=== PATIENT | male | born 1940 | race Caucasian/White ===

== ENCOUNTER → 2016-03-21 | Outpatient (CLI) | payer MEDICARE ==
[~2016-03-21] MED LIST: ALLOPURINOL100 MG PO; ASPIRIN ADULT L81 M1 PO; ASPIRIN325 MG PO; ATIVAN1 MG PO; ATORVASTATIN CA40 M1 PO; AVODART0.5 MG PO; BENADRYL50 MG PO; BYETTA10 MCG/0.1 SC; CARVEDILOL6.25 MG PO; CENTRUM SILVER1 EAC3 PO; ELIQUIS5 M1 PO; FINASTERIDE5 M1 PO; Lopressor25 MG PO; MEDROL DOSEPAK4 MG PO; PACERONE400 MG PO; SIMVASTATIN40 MG PO
== END | disposition home or self-care (01) ==
LOC: LAB 12:06
DX: H47.011 Ischemic optic neuropathy, right eye (principal)

== ENCOUNTER 2016-09-06 12:09 | Emergency (ER) | payer MEDICARE ==
[~2016-09-06] VITALS: Ht 177.8 cm; Wt 90.7 kg
== END 2016-09-06 14:18 | disposition home or self-care (01) ==
LOC: ED 12:09
DX: S80.12XA Contusion of left lower leg, initial encounter (principal); I10 Essential (primary) hypertension; M10.9 Gout, unspecified; E78.00 Pure hypercholesterolemia, unspecified; E11.9 Type 2 diabetes mellitus without complications; I48.91 Unspecified atrial fibrillation; E03.9 Hypothyroidism, unspecified; Z79.899 Other long term (current) drug therapy; Z79.82 Long term (current) use of aspirin; W06.XXXA Fall from bed, initial encounter; Y93.89 Activity, other specified; Y92.89 Other specified places as the place of occurrence of the external cause; Y99.8 Other external cause status

== ENCOUNTER 2016-10-25 13:07 | Inpatient (IN) | payer MEDICARE ==
[~2016-10-25] VITALS: Ht 177.8 cm; Wt 101.7 kg
[2016-10-25 13:17] VITALS: BP 178/65
[2016-10-25 13:30] LABS: HEMATOCRIT 39.9 % (42.0-52.0); MEAN CORPUSCULAR HGB 33.2 pg (27.0-31.0); MEAN CORPUSCULAR HGB CONC 32.6 g/dl (33.0-37.0); MEAN PLATELET VOLUME 10.9 fl (9.6-12.3); PLATELET COUNT AUTOMATED 199 10*3/uL (130-400); RED BLOOD COUNT 3.91 10*6/uL (4.50-5.90); RED CELL DISTRI WIDTH 15.6 % (0-14.5); WHITE BLOOD COUNT 14.6 10*3/uL (4.8-10.8)
[2016-10-25 13:42] LABS: INTERNATIONAL NORM RATIO 1.2 (2.0-3.5)
[2016-10-25 13:46] LABS: ALBUMIN 3.5 gm/dl (3.1-4.5); ALKALINE PHOSPHATASE 76 U/L (45-117); BILIRUBIN, TOTAL 0.4 mg/dl (0.2-1.0); BUN 20 mg/dl (7-24); CARBON DIOXIDE 27 mmol/L (21-32); CHLORIDE 106 mmol/L (98-107); EST GLOM FILT AFRICAN AMERICAN > 60 ml/min; GLUCOSE 87 mg/dL (65-99); POTASSIUM 4.4 mmol/L (3.5-5.1); SGOT/AST 37 IU/L (3-35); SGPT/ALT 41 U/L (12-78); SODIUM 140 mmol/L (136-145); TOTAL PROTEIN 6.7 gm/dL (6.4-8.2)
[2016-10-25 13:47] LABS: TROPONIN I 0.031 ng/ml (<0.045)
[2016-10-25 13:48] LABS: BASOPHIL # 0.6 10*3/uL (0-0.1); BASOPHILS 4 % (0-1); EOSINOPHIL # 0.3 10*3/uL (0-0.4); EOSINOPHILS 2 % (1-4); LYMPHOCYTE # 1.8 10*3/uL (1.3-4.4); METAMYELOCYTES 1 % (0-0); MONOCYTE # 0.7 10*3/uL (0.1-1.0); MYELOCYTES 1 % (0-0); NEUTROPHILS 75 % (47-73); TOTAL CELLS COUNTED 100 #CELLS
[2016-10-25 13:49] LABS: PLATELET SUFFICIENCY NORMAL (NORMAL)
[2016-10-25 14:08] VITALS: BP 159/77
[2016-10-25 14:31] VITALS: BP 145/73
[2016-10-25 15:15] VITALS: BP 130/82
[2016-10-25 16:00] VITALS: BP 130/82
[2016-10-25] MEDS ORDERED: AMIODARONE HCL200 MG PO (16:20)
[2016-10-25] MEDS ORDERED: JANUVIA50 MG PO (16:24)
[2016-10-25] MEDS ORDERED: ZOLOFT50 MG PO (16:25)
[2016-10-25] MEDS ORDERED: [UNRECOGNIZED DRUG - OTHER] T (16:26)
[2016-10-25] MEDS ORDERED: TRETINOIN20 G2 T (16:28)
[2016-10-25] MEDS ORDERED: ZESTRIL,PRINIVIL5 MG PO (16:29)
[2016-10-25 20:00] VITALS: BP 136/58
[2016-10-26] VITALS: BP 153/65; BP 159/58
[2016-10-26 05:50] LABS: HEMOGLOBIN 13.5 g/dl (14.0-18.0); MEAN CELL VOLUME 103.5 fl (80.0-94.0); MEAN CORPUSCULAR HGB 34.1 pg (27.0-31.0); MEAN CORPUSCULAR HGB CONC 32.9 g/dl (33.0-37.0); MEAN PLATELET VOLUME 11.1 fl (9.6-12.3); PLATELET COUNT AUTOMATED 197 10*3/uL (130-400); RED BLOOD COUNT 3.96 10*6/uL (4.50-5.90); RED CELL DISTRI WIDTH 15.8 % (0-14.5); WHITE BLOOD COUNT 14.3 10*3/uL (4.8-10.8)
[2016-10-26 06:03] LABS: HEMOGLOBIN A1c 5.8 % (4.8-5.6)
[2016-10-26 06:22] LABS: ALBUMIN 3.2 gm/dl (3.1-4.5); ALKALINE PHOSPHATASE 73 U/L (45-117); BILIRUBIN, TOTAL 0.4 mg/dl (0.2-1.0); BUN 16 mg/dl (7-24); CARBON DIOXIDE 29 mmol/L (21-32); CHLORIDE 107 mmol/L (98-107); CHOLESTEROL 119 mg/dL (<200); EST GLOM FILT AFRICAN AMERICAN > 60 ml/min; FREE T4 1.01 ng/dl (0.76-1.46); GLUCOSE 81 mg/dL (65-99); HDL CHOLESTEROL 48 mg/dl (40-60); LDL CHOLESTEROL 48 mg/dL (9-159); MAGNESIUM 1.8 mg/dL (1.5-2.1); PHOSPHOROUS 3.2 mg/dL (2.5-4.9); POTASSIUM 4.4 mmol/L (3.5-5.1); SGOT/AST 33 IU/L (3-35); SGPT/ALT 36 U/L (12-78); SODIUM 141 mmol/L (136-145); TRIGLYCERIDES 115 mg/dl (<150); VLDL CHOLESTEROL 23 mg/dL (6-40)
[2016-10-26 06:27] LABS: BASOPHIL # 0.3 10*3/uL (0-0.1); BASOPHILS 2 % (0-1); EOSINOPHIL # 0.3 10*3/uL (0-0.4); EOSINOPHILS 2 % (1-4); LYMPHOCYTE # 2.6 10*3/uL (1.3-4.4); METAMYELOCYTES 6 % (0-0); MONOCYTE # 0.9 10*3/uL (0.1-1.0); MYELOCYTES 1 % (0-0); NEUTROPHIL # 9.3 10*3/uL (2.3-7.9); NEUTROPHILS 65 % (47-73); PLATELET SUFFICIENCY NORMAL (NORMAL); TOTAL CELLS COUNTED 100 #CELLS
[2016-10-26 06:28] LABS: TOTAL PROTEIN 6.3 gm/dL (6.4-8.2)
[2016-10-26 06:32] LABS: FOLIC ACID 20.53 ng/mL (>5.38); VITAMIN D, 25-HYDROXY 25.9 ng/mL (30-100)
[2016-10-26 08:00] VITALS: BP 156/70
[2016-10-26 11:04] LABS: BILIRUBIN NEGATIVE (NEGATIVE); BLOOD NEGATIVE (NEGATIVE); CLARITY CLEAR (CLEAR); COLOR YELLOW (YELLOW); GLUCOSE NEGATIVE (NEGATIVE); KETONE NEGATIVE (NEGATIVE); LEUKO ESTERASE TRACE (NEGATIVE); NITRITE NEGATIVE (NEGATIVE); PH 5.5 (5.0-9.0); PROTEIN NEGATIVE (NEGATIVE); SPECIFIC GRAVITY <= 1.005 (1.005-1.030); UROBILINOGEN 0.2 E.U./dl (0.2-1.0)
[2016-10-26] MEDS ORDERED: SYNTHROID,LEV112 MCG PO (11:05)
[2016-10-26 11:10] LABS: WBC 0-2 wbc/hpf (0-5)
[2016-10-26 12:00] VITALS: BP 140/89
== END 2016-10-26 13:50 | disposition home or self-care (01) | DRG 281 ==
LOC: ED 13:07 → 5E 14:22 → EDHOLD 14:22 → 5E 14:47
PROVIDERS: Emergency Medicine; Family Medicine; Internal Medicine Hospice and Palliative Medicine
DX: I21.3 ST elevation (STEMI) myocardial infarction of unspecified site (principal); C92.10 Chronic myeloid leukemia, BCR/ABL-positive, not having achieved remission; D68.59 Other primary thrombophilia; R09.1 Pleurisy; E11.65 Type 2 diabetes mellitus with hyperglycemia; I48.0 Paroxysmal atrial fibrillation; K21.9 Gastro-esophageal reflux disease without esophagitis; R07.89 Other chest pain; I10 Essential (primary) hypertension; E78.00 Pure hypercholesterolemia, unspecified; I25.119 Atherosclerotic heart disease of native coronary artery with unspecified angina pectoris; F41.1 Generalized anxiety disorder; D53.9 Nutritional anemia, unspecified; N40.0 Benign prostatic hyperplasia without lower urinary tract symptoms; E02 Subclinical iodine-deficiency hypothyroidism; E78.5 Hyperlipidemia, unspecified; Z96.651 Presence of right artificial knee joint; F32.9 Major depressive disorder, single episode, unspecified; I44.0 Atrioventricular block, first degree; H54.41 Blindness, right eye, normal vision left eye; M10.9 Gout, unspecified; R00.1 Bradycardia, unspecified; Z98.61 Coronary angioplasty status; Z79.899 Other long term (current) drug therapy; Z79.82 Long term (current) use of aspirin; Z80.1 Family history of malignant neoplasm of trachea, bronchus and lung; Z82.49 Family history of ischemic heart disease and other diseases of the circulatory system

== ENCOUNTER 2016-12-09 08:30 | Emergency (ER) | payer MEDICARE ==
[~2016-12-09] VITALS: Ht 177.8 cm; Wt 90.7 kg
[~2016-12-09 08:30] MED LIST changes: +AMIODARONE HCL200 MG PO; +JANUVIA50 MG PO; +SYNTHROID,LEV112 MCG PO; +TRETINOIN20 G2 T; +ZESTRIL,PRINIVIL5 MG PO; +ZOLOFT50 MG PO; +[UNRECOGNIZED DRUG - OTHER] T
== END 2016-12-09 10:06 | disposition home or self-care (01) ==
LOC: ED 08:30
DX: S00.411A Abrasion of right ear, initial encounter (principal); E03.9 Hypothyroidism, unspecified; I48.91 Unspecified atrial fibrillation; I25.10 Atherosclerotic heart disease of native coronary artery without angina pectoris; I10 Essential (primary) hypertension; M10.9 Gout, unspecified; E78.00 Pure hypercholesterolemia, unspecified; E11.65 Type 2 diabetes mellitus with hyperglycemia; Z96.651 Presence of right artificial knee joint; Z95.5 Presence of coronary angioplasty implant and graft; Z79.899 Other long term (current) drug therapy; Z79.82 Long term (current) use of aspirin; X58.XXXA Exposure to other specified factors, initial encounter; Y93.89 Activity, other specified; Y92.89 Other specified places as the place of occurrence of the external cause; Y99.9 Unspecified external cause status

== ENCOUNTER 2017-01-30 15:35 | Emergency (ER) | payer MEDICARE ==
[~2017-01-30] VITALS: Wt 90.7 kg
[2017-01-30 16:57] LABS: HEMATOCRIT 44.3 % (42.0-52.0); HEMOGLOBIN 14.3 g/dl (14.0-18.0); MEAN CELL VOLUME 102.8 fl (80.0-94.0); MEAN CORPUSCULAR HGB 33.2 pg (27.0-31.0); MEAN CORPUSCULAR HGB CONC 32.3 g/dl (33.0-37.0); MEAN PLATELET VOLUME 11.8 fl (9.6-12.3); PLATELET COUNT AUTOMATED 234 10*3/uL (130-400); RED BLOOD COUNT 4.31 10*6/uL (4.50-5.90); RED CELL DISTRI WIDTH 16.7 % (0-14.5); WHITE BLOOD COUNT 13.8 10*3/uL (4.8-10.8)
[2017-01-30 17:11] LABS: ALBUMIN 3.6 gm/dl (3.1-4.5); ALKALINE PHOSPHATASE 72 U/L (45-117); BUN 21 mg/dl (7-24); CHLORIDE 106 mmol/L (98-107); LIPASE 116 U/L (73-393); POTASSIUM 4.8 mmol/L (3.5-5.1); SGOT/AST 38 IU/L (3-35); SGPT/ALT 41 U/L (12-78); SODIUM 141 mmol/L (136-145); TOTAL PROTEIN 7.1 gm/dL (6.4-8.2)
[2017-01-30 17:43] LABS: BASOPHILS 2 % (0-1); TOTAL CELLS COUNTED 100 #CELLS
[2017-01-30 17:44] LABS: PLATELET SUFFICIENCY NORMAL (NORMAL)
[2017-01-30 18:05] LABS: BILIRUBIN NEGATIVE (NEGATIVE); BLOOD NEGATIVE (NEGATIVE); CLARITY CLEAR (CLEAR); COLOR YELLOW (YELLOW); GLUCOSE NEGATIVE (NEGATIVE); KETONE NEGATIVE (NEGATIVE); LEUKO ESTERASE NEGATIVE (NEGATIVE); NITRITE NEGATIVE (NEGATIVE); UROBILINOGEN 0.2 E.U./dl (0.2-1.0)
[2017-01-30 18:17] LABS: EPITHELIAL CELLS 0-2; RBC 0-2 rbc/hpf (0-2); WBC 0-2 wbc/hpf (0-5)
[2017-01-30] MEDS ORDERED: MIRALAX POWDER17 G1 PO (18:49)
== END 2017-01-30 18:37 | disposition home or self-care (01) ==
LOC: ED 15:35
PROVIDERS: Nurse Practitioner Family
DX: K59.00 Constipation, unspecified (principal); R03.0 Elevated blood-pressure reading, without diagnosis of hypertension; I48.91 Unspecified atrial fibrillation; I25.10 Atherosclerotic heart disease of native coronary artery without angina pectoris; F32.9 Major depressive disorder, single episode, unspecified; I10 Essential (primary) hypertension; E78.00 Pure hypercholesterolemia, unspecified; E03.9 Hypothyroidism, unspecified; E11.65 Type 2 diabetes mellitus with hyperglycemia; Z79.82 Long term (current) use of aspirin; Z79.899 Other long term (current) drug therapy

== ENCOUNTER 2017-03-12 01:18 | Emergency (ER) | payer MEDICARE ==
[~2017-03-12] VITALS: Wt 90.7 kg
[~2017-03-12 01:18] MED LIST changes: +MIRALAX POWDER17 G1 PO
[2017-03-12 01:44] LABS: HEMATOCRIT 40.8 % (42.0-52.0); HEMOGLOBIN 13.3 g/dl (14.0-18.0); MEAN CELL VOLUME 102.5 fl (80.0-94.0); MEAN CORPUSCULAR HGB 33.4 pg (27.0-31.0); MEAN CORPUSCULAR HGB CONC 32.6 g/dl (33.0-37.0); PLATELET COUNT AUTOMATED 202 10*3/uL (130-400); RED BLOOD COUNT 3.98 10*6/uL (4.50-5.90); RED CELL DISTRI WIDTH 16.3 % (0-14.5); WHITE BLOOD COUNT 18.2 10*3/uL (4.8-10.8)
[2017-03-12 02:02] LABS: ALBUMIN 3.5 gm/dl (3.1-4.5); ALKALINE PHOSPHATASE 94 U/L (45-117); BASOPHILS 2 % (0-1); BUN 21 mg/dl (7-24); CHLORIDE 104 mmol/L (98-107); CREATININE 1.13 mg/dL (0.70-1.30); PLATELET SUFFICIENCY NORMAL (NORMAL); POTASSIUM 4.3 mmol/L (3.5-5.1); SGOT/AST 30 IU/L (3-35); SGPT/ALT 32 U/L (12-78); SODIUM 142 mmol/L (136-145); TOTAL CELLS COUNTED 100 #CELLS
[2017-03-12] MEDS ORDERED: NAPROSYN500 MG PO (02:44)
== END 2017-03-12 02:50 | disposition home or self-care (01) ==
LOC: ED 01:18
PROVIDERS: Student in an Organized Health Care Education/Training Program
DX: R07.81 Pleurodynia (principal); M54.5 Low back pain; I25.10 Atherosclerotic heart disease of native coronary artery without angina pectoris; I48.91 Unspecified atrial fibrillation; I10 Essential (primary) hypertension; E78.00 Pure hypercholesterolemia, unspecified; E03.9 Hypothyroidism, unspecified; E11.9 Type 2 diabetes mellitus without complications; Z79.82 Long term (current) use of aspirin; Z79.899 Other long term (current) drug therapy

== ENCOUNTER 2017-03-18 22:58 | Inpatient (IN) | payer MEDICARE ==
[~2017-03-18] VITALS: Ht 177.8 cm; Wt 88.6 kg
--- NOTE | ~2017-03-18 | CON ---
[place], [place] REPORT OF CONSULTATION NAME: ODILON DUFFY UNIT #: [id number] ROOM: [facility] DOCTOR: SAHIL SANDY MD BIRTHDATE: [birth year] DOS: 03/19/2017 CHIEF COMPLAINT: Falling spells, chest discomfort, elevated troponin. HISTORY OF PRESENT ILLNESS: The patient is a 76-year-old man who does have a history of atherosclerotic heart disease. Old records are not yet available, but the patient states that he has had catheterization, angioplasty and stenting in the distant past. He states he is typically followed by a printer maintainer, Dr. Chris, at the [facility] in [place], [place]. The patient also has paroxysmal atrial fibrillation for which he is on amiodarone for rhythm control and Eliquis for stroke prophylaxis. Please note that much of the history is obtained from old records that are available since the patient is a very poor historian. He presented to the hospital on 03/18/2017 for evaluation of confusion and falling. He states that he was visiting his son in [place] for the Skip holidays a week or so ago and fell in his driveway. He believes he just slipped and fell. He did state that he hit his back hard. He subsequently had spells where he has been weak in his legs and has fallen. He also seems quite confused. It is not clear how much of this is his baseline since old records indicate that he was a poor historian at that time as well. He subsequently has had at least 2 or 3 further falls, but he is very unclear on this. During one fall in his home, he believes that he ran into a door frame and then fell. He does admit that he has hit his head during at least one fall. The old records indicate that the daycare manager where he lives was present in the Emergency Room. They stated that he had fallen more than once on the day of admission and also that the patient's medications were scattered all over the place at his home. In addition to the above, the patient has had chest discomfort. He describes a nondescript heaviness in his left anterior chest. He cannot tell me what if anything makes it better or worse. PAST MEDICAL HISTORY: Includes; 1. Atherosclerotic heart disease, status post catheterization, angioplasty and stenting in the distant past. Detailed records not available. 2. Paroxysmal atrial fibrillation. The patient is currently in sinus rhythm and is taking amiodarone for rhythm control. He is on Eliquis for stroke prophylaxis. 3. Benign prostatic hyperplasia. 4. History of chronic myelocytic leukemia, status post chemotherapy with Gleevec. 5. History of essential hypertension. 6. Gout. 7. Hypercholesterolemia. 8. Hypothyroidism. The patient was placed on thyroid replacement and his indices now indicate hyperthyroidism. This is at least partly driven by his amiodarone therapy. 9. History of anemia. [place], [place] REPORT OF CONSULTATION NAME: ODILON DUFFY UNIT #: [id number] ROOM: [facility] DOCTOR: SAHIL SANDY MD BIRTHDATE: [birth year] 10. Type 2 diabetes mellitus, on insulin. 11. History of depression. 12. History of right total knee replacement. MEDICATIONS PRIOR TO ADMISSION: 1. Aspirin 81 mg daily. 2. Atorvastatin 20 mg every evening. 3. Cyclobenzaprine 5 mg b.i.d. as needed for muscle spasms. 4. Levothyroxine 25 mcg daily. 5. Lisinopril 5 mg 2 tablets b.i.d. 6. Multivitamin (Centrum Silver) 1 p.o. each day. 7. Naproxen 500 mg b.i.d. 8. Sertraline 50 mg daily. 9. Apixaban 5 mg b.i.d. 10. Carvedilol 6.25 mg b.i.d. 11. Finasteride 5 mg per day. 12. Amiodarone 200 mg per day. 13. Sitagliptin 50 mg daily. 14. Tretinoin cream applied to the face daily. 15. Polyethylene glycol 1 packet daily. ALLERGIES: The patient has no known drug allergies. FAMILY HISTORY: The patient's father of lung cancer at age 72. His mother of heart disease in her 70s. A brother of a heart attack in his 50s and another brother had heart disease requiring open heart surgery. REVIEW OF SYSTEMS: The patient has a hard time answering questions and often seems very tangential. He denies headache, lightheadedness or syncope. He does admit that he is unsteady. He denies syncope. He denies fevers, chills, sweats or recent weight change. He has had some heaviness in his chest, but he cannot tell what makes it better or worse. He denies nausea or vomiting. He denies cough or hemoptysis. He denies any hematemesis. He denies any skin rashes. He denies bleeding from his nose, urine or stool. He denies constipation or diarrhea. He denies any peripheral edema. He denies dysuria or enuresis. The remainder of the review of systems is negative except as noted above. SOCIAL HISTORY: The patient lives alone. He does not smoke or consume alcohol. He states that all of his family is in [place] and it does not sound like he has much family support to help him locally. PHYSICAL EXAMINATION: GENERAL: The patient is a well-nourished white male who is awake and alert. He seems to be oriented x at least 2, but confuses easily. VITAL SIGNS: Pulse is 56 and regular, blood pressure is 161/68. He is afebrile. He weighs 88.6 kg and has a body mass index of 28. HEENT: Normocephalic, atraumatic. Extraocular muscles are intact. Sclerae are clear. Pupils are equal, round and react to light. The oral mucosa is moist. Tongue is midline. NECK: Supple. He has no jugular distention. Carotids are full. I heard no [place], [place] REPORT OF CONSULTATION NAME: ODILON DUFFY UNIT #: [id number] ROOM: [facility] DOCTOR: SAHIL SANDY MD BIRTHDATE: [birth year] bru[place]. He had no neck or supraclavicular masses and no thyromegaly. LUNGS: Respirations are unlabored. His chest is clear to auscultation and percussion. He has no presacral edema or chest wall tenderness. CARDIOVASCULAR: His heart has a regular rhythm. He has a fourth heart sound, but no third heart sound. The PMI is not displaced. He has no precordial heave, lift or thrill. ABDOMEN: Soft and normally active without masses, organomegaly or bruits. EXTREMITIES: Showed no edema. Peripheral pulses are palpable in the feet. I reviewed his electrocardiogram and it showed no acute ST or T-wave changes. His chest x-ray showed no acute infiltrates. A CT scan of the head showed normal age-related findings, but no hemorrhage or tumor. Hemoglobin is 12.6 with hematocrit 37.7. There are 19,000 white cells present, platelet count is 206,000. Sodium is 141, potassium 3.7, BUN 16, creatinine 0.93. Estimated GFR is greater than 60. Troponin levels have been elevated since admission. His initial troponin was 0.112; it went as high as 0.217 and has now backed down to 0.166. Urine shows no signs of infection. IMPRESSIONS: 1. Atypical chest pain in a patient with history of coronary artery disease. Details of his history are not yet available. 2. Elevated troponin levels, possibly due to an acute myocardial infarction. 3. Diabetes mellitus. 4. Essential hypertension. 5. Thyroid disease, likely exacerbated by amiodarone therapy. 6. Paroxysmal atrial fibrillation. The patient is currently in sinus rhythm on amiodarone with apixaban as an anti-stroke agent. 7. History of partial blindness. 8. History of coronary artery disease, status post reported stent in the distant past. 9. Chronic myelocytic leukemia. PLAN: The patient is currently being managed with amiodarone, beta thiago and apixaban for his atrial fibrillation and stroke prophylaxis. He is also on atorvastatin and aspirin. He has no acute EKG changes, but his troponin levels are somewhat concerning for a myocardial injury. We will proceed with a pharmacologic stress test today to help better predict his cardiac prognosis and to evaluate left ventricular systolic function. Unless he has very high risk findings, I think we will try to emphasize a conservative approach to his care. His confusion is a concern and will require further evaluation. I do not believe that we can fully explain this based on cardiac problems. We will continue to follow him with his other physicians and make further recommendations after his stress test is available. I thank the hospitalist physicians for asking our advice regarding his care. [place], [place] REPORT OF CONSULTATION NAME: ODILON DUFFY Jamaal UNIT #: [id number] ROOM: [facility] DOCTOR: SAHIL SANDY MD BIRTHDATE: [birth year] SAHIL SANDY MD CM:CONSTR:REPORT OF CONSULTATION 1416 03/20/17 0130 interface
[2017-03-18 22:58] VITALS: BP 131/58
[~2017-03-18 22:58] MED LIST changes: -ATORVASTATIN CA40 M1 PO; +LIPITOR20 MG PO; +NAPROSYN500 MG PO
[2017-03-18 23:47] LABS: HEMATOCRIT 37.7 % (42.0-52.0); HEMOGLOBIN 12.6 g/dl (14.0-18.0); MEAN CELL VOLUME 100.8 fl (80.0-94.0); MEAN CORPUSCULAR HGB 33.7 pg (27.0-31.0); MEAN CORPUSCULAR HGB CONC 33.4 g/dl (33.0-37.0); MEAN PLATELET VOLUME 11.3 fl (9.6-12.3); PLATELET COUNT AUTOMATED 212 10*3/uL (130-400); RED BLOOD COUNT 3.74 10*6/uL (4.50-5.90); RED CELL DISTRI WIDTH 15.5 % (0-14.5); WHITE BLOOD COUNT 23.7 10*3/uL (4.8-10.8)
[2017-03-19 00:09] LABS: ALBUMIN 3.3 gm/dl (3.1-4.5); ALKALINE PHOSPHATASE 107 U/L (45-117); BUN 22 mg/dl (7-24); CHLORIDE 103 mmol/L (98-107); CREATININE 1.12 mg/dL (0.70-1.30); SGOT/AST 35 IU/L (3-35); SGPT/ALT 33 U/L (12-78); SODIUM 137 mmol/L (136-145); TOTAL PROTEIN 6.5 gm/dL (6.4-8.2)
[2017-03-19 00:11] LABS: ACT PARTIAL THROMBO TIME 30.5 SECONDS (19.5-32.1); INTERNATIONAL NORM RATIO 1.3 (2.0-3.5)
[2017-03-19 00:13] LABS: TROPONIN I 0.112 ng/ml (<0.045)
[2017-03-19 00:17] LABS: PLATELET SUFFICIENCY NORMAL (NORMAL); TOTAL CELLS COUNTED 100 #CELLS
[2017-03-19 00:25] LABS: LIPASE 80 U/L (73-393)
[2017-03-19 00:34] LABS: BILIRUBIN NEGATIVE (NEGATIVE); BLOOD NEGATIVE (NEGATIVE); CLARITY SL CLOUDY (CLEAR); COLOR YELLOW (YELLOW); GLUCOSE NEGATIVE (NEGATIVE); KETONE NEGATIVE (NEGATIVE); LEUKO ESTERASE NEGATIVE (NEGATIVE); NITRITE NEGATIVE (NEGATIVE); UROBILINOGEN 0.2 E.U./dl (0.2-1.0)
[2017-03-19 00:50] LABS: BACTERIA TRACE
[2017-03-19 02:10] VITALS: BP 150/58
[2017-03-19 06:16] LABS: HEMATOCRIT 37.7 % (42.0-52.0); HEMOGLOBIN 12.6 g/dl (14.0-18.0); MEAN CELL VOLUME 101.3 fl (80.0-94.0); MEAN CORPUSCULAR HGB 33.9 pg (27.0-31.0); MEAN CORPUSCULAR HGB CONC 33.4 g/dl (33.0-37.0); MEAN PLATELET VOLUME 11.1 fl (9.6-12.3); PLATELET COUNT AUTOMATED 206 10*3/uL (130-400); RED BLOOD COUNT 3.72 10*6/uL (4.50-5.90); RED CELL DISTRI WIDTH 15.6 % (0-14.5)
[2017-03-19 06:38] LABS: ALBUMIN 3.1 gm/dl (3.1-4.5); ALKALINE PHOSPHATASE 94 U/L (45-117); BUN 16 mg/dl (7-24); CHLORIDE 105 mmol/L (98-107); CHOLESTEROL 101 mg/dL (<200); CREATININE 0.93 mg/dL (0.70-1.30); HDL CHOLESTEROL 52 mg/dl (40-60); LDL CHOLESTEROL 36 mg/dL (9-159); PHOSPHOROUS 3.4 mg/dL (2.5-4.9); POTASSIUM 3.7 mmol/L (3.5-5.1); SGOT/AST 35 IU/L (3-35); SGPT/ALT 32 U/L (12-78); SODIUM 141 mmol/L (136-145); TOTAL PROTEIN 6.1 gm/dL (6.4-8.2); TRIGLYCERIDES 65 mg/dl (<150); VLDL CHOLESTEROL 13 mg/dL (6-40)
[2017-03-19 06:43] LABS: THYROID STIM HORMONE (HS) 0.171 uIU/ml (0.358-4.75)
[2017-03-19 06:50] VITALS: BP 142/62
[2017-03-19 07:10] LABS: ACT PARTIAL THROMBO TIME 30.8 SECONDS (19.5-32.1); INTERNATIONAL NORM RATIO 1.3 (2.0-3.5)
[2017-03-19 07:29] LABS: ATYPICAL LYMPHS 4 % (0-0); BASOPHILS 4 % (0-1); PLATELET SUFFICIENCY NORMAL (NORMAL); TOTAL CELLS COUNTED 100 #CELLS
[2017-03-19 08:08] LABS: VITAMIN D, 25-HYDROXY 17.5 ng/mL (30-100)
[2017-03-19] MEDS ORDERED: NAPROSYN500 MG PO (10:12)
[2017-03-19] MEDS ORDERED: CYCLOBENZAPRINE5 M3 PO (10:12)
[2017-03-19 12:00] VITALS: BP 161/68
[2017-03-19 12:12] LABS: FREE T4 2.79 ng/dl (0.76-1.46)
[2017-03-19 12:15] LABS: ACETAMINOPHEN (TYLENOL) < 2.0 ug/ml (10-30); TROPONIN I 0.166 ng/ml (<0.045)
[2017-03-19 16:00] VITALS: BP 143/89
[2017-03-19 18:20] LABS: URINE AMPHETAMINES < 1000 (1000ng/ml); URINE BARBITURATES < 200 (200ng/ml); URINE BENZODIAZEPINES < 200 (200ng/ml); URINE CANNABINOIDS (THC) < 50 (50ng/ml); URINE COCAINE < 300 (300ng/ml); URINE METHADONE < 300 (300ng/ml); URINE OPIATES < 300 (300ng/ml)
[2017-03-19 18:27] LABS: URINE PHENCYCLIDINE < 25 (25ng/ml)
[2017-03-19 20:00] VITALS: BP 148/61
[2017-03-20] VITALS: BP 144/62
[2017-03-20 04:00] VITALS: BP 140/60
[2017-03-20 05:32] LABS: ALKALINE PHOSPHATASE 88 U/L (45-117); BUN 14 mg/dl (7-24); CHLORIDE 105 mmol/L (98-107); CREATININE 1.15 mg/dL (0.70-1.30); PHOSPHOROUS 4.1 mg/dL (2.5-4.9); POTASSIUM 3.9 mmol/L (3.5-5.1); SGOT/AST 35 IU/L (3-35); SGPT/ALT 36 U/L (12-78); SODIUM 141 mmol/L (136-145); TOTAL PROTEIN 6.2 gm/dL (6.4-8.2)
[2017-03-20 06:06] LABS: HEMATOCRIT 37.9 % (42.0-52.0); HEMOGLOBIN 12.6 g/dl (14.0-18.0); MEAN CELL VOLUME 101.9 fl (80.0-94.0); MEAN CORPUSCULAR HGB 33.9 pg (27.0-31.0); MEAN CORPUSCULAR HGB CONC 33.2 g/dl (33.0-37.0); MEAN PLATELET VOLUME 11.5 fl (9.6-12.3); PLATELET COUNT AUTOMATED 231 10*3/uL (130-400); RED BLOOD COUNT 3.72 10*6/uL (4.50-5.90); RED CELL DISTRI WIDTH 15.7 % (0-14.5); WHITE BLOOD COUNT 13.9 10*3/uL (4.8-10.8)
[2017-03-20 06:59] LABS: ATYPICAL LYMPHS 1 % (0-0); BASOPHILS 2 % (0-1); PLATELET SUFFICIENCY NORMAL (NORMAL); TOTAL CELLS COUNTED 100 #CELLS
[2017-03-20 08:00] VITALS: BP 184/72
[2017-03-20 12:00] VITALS: BP 152/82
[2017-03-20 16:00] VITALS: BP 140/70
[2017-03-20 20:00] VITALS: BP 143/92
[2017-03-21] VITALS: BP 137/59
[2017-03-21 04:00] VITALS: BP 142/60
[2017-03-21 05:43] LABS: ALBUMIN 2.9 gm/dl (3.1-4.5); ALKALINE PHOSPHATASE 97 U/L (45-117); BUN 19 mg/dl (7-24); CHLORIDE 108 mmol/L (98-107); CREATININE 1.26 mg/dL (0.70-1.30); FREE T4 2.47 ng/dl (0.76-1.46); POTASSIUM 3.7 mmol/L (3.5-5.1); SGOT/AST 35 IU/L (3-35); SGPT/ALT 39 U/L (12-78); SODIUM 144 mmol/L (136-145); TOTAL PROTEIN 6.2 gm/dL (6.4-8.2)
[2017-03-21 05:49] LABS: THYROID STIM HORMONE (HS) 0.081 uIU/ml (0.358-4.75)
[2017-03-21 06:11] LABS: HEMATOCRIT 39.2 % (42.0-52.0); HEMOGLOBIN 12.8 g/dl (14.0-18.0); MEAN CELL VOLUME 101.3 fl (80.0-94.0); MEAN CORPUSCULAR HGB 33.1 pg (27.0-31.0); MEAN CORPUSCULAR HGB CONC 32.7 g/dl (33.0-37.0); MEAN PLATELET VOLUME 11.5 fl (9.6-12.3); PLATELET COUNT AUTOMATED 237 10*3/uL (130-400); RED BLOOD COUNT 3.87 10*6/uL (4.50-5.90); RED CELL DISTRI WIDTH 15.6 % (0-14.5); WHITE BLOOD COUNT 14.2 10*3/uL (4.8-10.8)
[2017-03-21 07:03] LABS: BASOPHILS 2 % (0-1); PLATELET SUFFICIENCY NORMAL (NORMAL); TOTAL CELLS COUNTED 100 #CELLS
[2017-03-21 08:00] VITALS: BP 160/80
[2017-03-21] MEDS ORDERED: PROSCAR5 M1 PO (10:26)
[2017-03-21] MEDS ORDERED: COREG12.5 M1 PO (10:26)
[2017-03-21] MEDS ORDERED: PACERONE100 MG PO (10:28)
[2017-03-21] MEDS ORDERED: ELIQUIS5 M1 PO (10:28)
[2017-03-21] MEDS ORDERED: JANUVIA50 MG PO (10:29)
[2017-03-21 12:00] VITALS: BP 138/78
[2017-03-21] MEDS ORDERED: LEVOTHYROXINE137 MCG PO (12:16)
[2017-03-21] MEDS ORDERED: SERTRALINE HYDR50 MG PO (12:18)
== END 2017-03-21 14:27 | disposition home or self-care (01) | DRG 871 ==
LOC: ED 22:58 → ICCU 03-19 01:18 → EDHOLD 03-19 01:18 → 5E 03-19 01:24 → ICCU 03-19 06:58
PROVIDERS: Emergency Medicine; Family Medicine; Hospitalist; Student in an Organized Health Care Education/Training Program
PROC: 3E073KZ Introduction of Other Diagnostic Substance into Coronary Artery, Percutaneous Approach (ICD-10-PCS; principal; 2017-03-19)
PROC: 4A02XM4 Measurement of Cardiac Total Activity, External Approach (ICD-10-PCS; principal; 2017-03-19)
DX: A41.9 Sepsis, unspecified organism (principal); G93.41 Metabolic encephalopathy; D68.59 Other primary thrombophilia; C92.10 Chronic myeloid leukemia, BCR/ABL-positive, not having achieved remission; E11.65 Type 2 diabetes mellitus with hyperglycemia; I48.0 Paroxysmal atrial fibrillation; N40.0 Benign prostatic hyperplasia without lower urinary tract symptoms; M1A.40X0 Other secondary chronic gout, unspecified site, without tophus (tophi); R29.6 Repeated falls; Z96.651 Presence of right artificial knee joint; I25.10 Atherosclerotic heart disease of native coronary artery without angina pectoris; E78.00 Pure hypercholesterolemia, unspecified; E03.9 Hypothyroidism, unspecified; F32.9 Major depressive disorder, single episode, unspecified; Z60.2 Problems related to living alone; I48.91 Unspecified atrial fibrillation; K59.00 Constipation, unspecified; D53.9 Nutritional anemia, unspecified; I48.2 Chronic atrial fibrillation; G89.29 Other chronic pain; H54.7 Unspecified visual loss; I11.9 Hypertensive heart disease without heart failure; F41.1 Generalized anxiety disorder; M54.5 Low back pain; Z95.5 Presence of coronary angioplasty implant and graft; Z79.899 Other long term (current) drug therapy; Z79.4 Long term (current) use of insulin; Z79.82 Long term (current) use of aspirin; Z82.49 Family history of ischemic heart disease and other diseases of the circulatory system; Z80.1 Family history of malignant neoplasm of trachea, bronchus and lung; W17.89XA Other fall from one level to another, initial encounter; Y93.89 Activity, other specified; Y92.89 Other specified places as the place of occurrence of the external cause; Y99.8 Other external cause status

== ENCOUNTER 2019-01-10 07:51 | Emergency (ER) | payer MEDICARE ==
[~2019-01-10] VITALS: Ht 177.8 cm; Wt 78.5 kg
[~2019-01-10 07:51] MED LIST changes: +COREG12.5 M1 PO; +CYCLOBENZAPRINE5 M3 PO; +DULCOLAX5 M1 PO; +LEVOTHYROXINE137 MCG PO; +PACERONE100 MG PO; +PROSCAR5 M1 PO; +PROTONIX40 MG PO; +SERTRALINE HYDR50 MG PO
== END 2019-01-10 10:07 | disposition home or self-care (01) ==
LOC: ED 07:51
DX: S20.212A Contusion of left front wall of thorax, initial encounter (principal); I25.10 Atherosclerotic heart disease of native coronary artery without angina pectoris; I48.91 Unspecified atrial fibrillation; I10 Essential (primary) hypertension; K21.9 Gastro-esophageal reflux disease without esophagitis; M10.9 Gout, unspecified; E78.00 Pure hypercholesterolemia, unspecified; E03.9 Hypothyroidism, unspecified; E11.9 Type 2 diabetes mellitus without complications; Z79.899 Other long term (current) drug therapy; Z79.82 Long term (current) use of aspirin; W18.39XA Other fall on same level, initial encounter; Y93.89 Activity, other specified; Y92.89 Other specified places as the place of occurrence of the external cause; Y99.8 Other external cause status

== ENCOUNTER → 2019-02-23 | Emergency (ER) | payer MEDICARE ==
[~2019-02-23] VITALS: Ht 177.8 cm; Wt 84.8 kg
--- NOTE | ~2019-02-23 | EKG ---
[place], [place] ELECTROCARDIOGRAM REPORT NAME: ODILON DUFFY UNIT #: [id number] ROOM: DOCTOR: EPIPHANY DRAFT REPORT BIRTHDATE: [birth year] [facility] Test Date: 2019-02-23 Test Time: 07:53:37 Pat Name: ODILON DUFFY Department: Room: Gender: M Multimedia Coordinator: : 1940 Requested By: DEBORA GOODWIN Order Number: [id number] Reading MD: Measurements Intervals [place] Mark Rate: 54 P: -62 AR: 232 QRS: -44 QRSD: 111 T: 22 QT: 477 QTc: 453 Interpretive Statements Sinus or ectopic atrial rhythm Prolonged AR interval Incomplete left bundle branch block Compared to ECG 10/24/2018 11:00:20 Ectopic atrial rhythm now present Left bundle-branch block now present Sinus bradycardia no longer present ST (T wave) deviation no longer present CM:EKGRPT:ELECTROCARDIOGRAM REPORT [id number] DEBORA ALFARO DRAFT REPORT DEBORA GOODWIN MD
[2019-02-23 07:56] LABS: HEMATOCRIT 40.9 % (42.0-52.0); HEMOGLOBIN 13.2 g/dl (14.0-18.0); MEAN CELL VOLUME 99.3 fl (80.0-94.0); MEAN CORPUSCULAR HGB CONC 32.3 g/dl (33.0-37.0); PLATELET COUNT AUTOMATED 240 10*3/uL (130-400); RED BLOOD COUNT 4.12 10*6/uL (4.50-5.90); RED CELL DISTRI WIDTH 15.6 % (0-14.5); WHITE BLOOD COUNT 11.4 10*3/uL (4.8-10.8)
[2019-02-23 08:05] LABS: ACT PARTIAL THROMBO TIME 34.2 SECONDS (20.0-32.1); INTERNATIONAL NORM RATIO 1.2 (2.0-3.5)
[2019-02-23 08:11] LABS: ALBUMIN 3.7 gm/dl (3.1-4.5); ALKALINE PHOSPHATASE 82 U/L (45-117); BUN 27 mg/dl (7-24); CHLORIDE 104 mmol/L (98-107); CREATININE 1.57 mg/dL (0.70-1.30); POTASSIUM 3.8 mmol/L (3.5-5.1); SGOT/AST 19 IU/L (3-35); SGPT/ALT 18 U/L (12-78); SODIUM 138 mmol/L (136-145); TOTAL PROTEIN 7.1 gm/dL (6.4-8.2)
[2019-02-23 08:12] LABS: TROPONIN I < 0.015 ng/ml (<0.045)
[2019-02-23 08:18] LABS: BASOPHILS 7 % (0-1); TOTAL CELLS COUNTED 100 #CELLS
[2019-02-23 08:21] LABS: PLATELET SUFFICIENCY NORMAL (NORMAL)
[2019-02-23 08:35] LABS: BILIRUBIN NEGATIVE (NEGATIVE); BLOOD NEGATIVE (NEGATIVE); CLARITY SL CLOUDY (CLEAR); COLOR YELLOW (YELLOW); GLUCOSE NEGATIVE (NEGATIVE); KETONE NEGATIVE (NEGATIVE); LEUKO ESTERASE NEGATIVE (NEGATIVE); NITRITE NEGATIVE (NEGATIVE); PH 6.5 (5.0-9.0)
[2019-02-23 09:29] LABS: BACTERIA TRACE; EPITHELIAL CELLS 0-2; RBC 0-2 rbc/hpf (0-2)
== END ==
LOC: ED 07:04
PROVIDERS: Emergency Medicine
DX: S40.022A Contusion of left upper arm, initial encounter (principal); I48.91 Unspecified atrial fibrillation; I25.10 Atherosclerotic heart disease of native coronary artery without angina pectoris; I10 Essential (primary) hypertension; K21.9 Gastro-esophageal reflux disease without esophagitis; E78.00 Pure hypercholesterolemia, unspecified; E03.9 Hypothyroidism, unspecified; E11.9 Type 2 diabetes mellitus without complications; Z79.899 Other long term (current) drug therapy; Z79.82 Long term (current) use of aspirin; W19.XXXA Unspecified fall, initial encounter; Y93.89 Activity, other specified; Y92.098 Other place in other non-institutional residence as the place of occurrence of the external cause; Y99.8 Other external cause status

== ENCOUNTER 2019-02-25 07:17 | Emergency (ER) | payer MEDICARE ==
[~2019-02-25] VITALS: Ht 177.8 cm; Wt 77.1 kg
== END 2019-02-25 09:26 | disposition home or self-care (01) ==
LOC: ED 07:17
DX: S40.012A Contusion of left shoulder, initial encounter (principal); M25.511 Pain in right shoulder; M54.9 Dorsalgia, unspecified; I48.91 Unspecified atrial fibrillation; I25.10 Atherosclerotic heart disease of native coronary artery without angina pectoris; I10 Essential (primary) hypertension; K21.9 Gastro-esophageal reflux disease without esophagitis; M10.9 Gout, unspecified; E03.9 Hypothyroidism, unspecified; E11.9 Type 2 diabetes mellitus without complications; E78.00 Pure hypercholesterolemia, unspecified; Z79.899 Other long term (current) drug therapy; Z79.82 Long term (current) use of aspirin; W19.XXXA Unspecified fall, initial encounter; Y93.89 Activity, other specified; Y92.89 Other specified places as the place of occurrence of the external cause; Y99.8 Other external cause status

== ENCOUNTER 2019-03-27 12:34 | Emergency (ER) | payer MEDICARE ==
[~2019-03-27] VITALS: Ht 162.5 cm; Wt 54.4 kg
== END 2019-03-27 13:21 | disposition left against medical advice (07) ==
LOC: ED 12:34
DX: L08.9 Local infection of the skin and subcutaneous tissue, unspecified (principal); Z53.21 Procedure and treatment not carried out due to patient leaving prior to being seen by health care provider